=== PATIENT | male | born 1960 | race Hispanic/Latino ===

== ENCOUNTER 2017-04-05 07:45 | Day surgery (SDC) | payer MEDICAID ==
[2017-03-25 13:10] VITALS: BMI 30.8
[2017-04-05 08:18] LABS: BASO # 0.04 K/mm3 (0.0-2.0); BASO % 0.4 % (0.0-3.0); EOS # 0.2 (0.0-0.7); EOS % 1.4 % (1.5-5.0); GRAN # 7.81 (1.4-6.5); GRAN % 69.7 % (50.0-68.0); HEMOGLOBIN 13.8 gm/dL (14.0-18.0); LYMPH # 2.4 (1.2-3.4); LYMPH % 21.3 % (22.0-35.0); MEAN CELL VOLUME 84.6 fL (80.0-105.0); MEAN CORPUSCULAR HEMOGLOBIN 29.1 pg (25.0-35.0); MEAN CORPUSCULAR HGB CONC 34.4 g/dl (31.0-37.0); MEAN PLATELET VOLUME 8.8 fl (7.0-11.0); MONO # 0.8 (0.1-0.6); MONO % 7.2 % (1.0-6.0); PLATELET COUNT 225 10^3/uL (120.0-450.0); RBC 4.74 10^6/uL (3.5-6.1); RED CELL DISTRIBUTION WIDTH 14.9 % (11.5-14.5); WHITE BLOOD COUNT 11.2 10^3/ul (4.5-11.0)
[2017-04-05 08:24] LABS: BLOOD UREA NITROGEN 23 mg/dL (7-21); CALCIUM 9.2 mg/dL (8.4-10.5); GFR AFRICAN-AMERICAN > 60; GFR NON-AFRICAN AMERICAN > 60; HDL CHOLESTEROL 65 mg/dL (29-60)
[2017-04-05 08:34] LABS: INR 0.97 (0.93-1.08); PARTIAL THROMBOPLASTIN TIME 21.5 Seconds (23.7-30.8); PROTHROMBIN TIME 10.5 Seconds (9.9-11.8)
[2017-04-05 08:35] LABS: LDL CHOLESTEROL 92 mg/dL (0-129)
[2017-04-05] MEDS ORDERED: Lidocaine 2% Inj (20ml) ONE (10:34)
[2017-04-05] MEDS ORDERED: Midazolam 2 MG/2 ML VIAL ONE (11:10)
[2017-04-05] MEDS ORDERED: Iohexol 350 MG/100 ML VIAL ONE (11:24)
[2017-04-05] MEDS ORDERED: Sodium Chloride 0.45% 1,000 ML IV SCH (11:45)
[2017-04-05 12:14] VITALS: TEMP 98.1; O2SAT 96
[2017-04-05 13:58] VITALS: RESP 18
[2017-04-05 14:35] VITALS: BP 109/64; PULSE 72
--- NOTE | 2017-04-06 12:10 | CARD ---
APPROVED REPORT Procedure(s) performed: Left Heart Catheterization Complete Heart Catheterization Left Ventriculogram Selective Right and Left Coronary Angiography HISTORY diagnostic cath, tobacco history() : The patient is a current smoker . INDICATION The indication(s) include : positive stress test, dyspnea. CASE TECHNIQUE The patient was brought electively to the Cardiac Catheterization Laboratory in a fasting state and was prepped and draped in a sterile manner. The right femoral groin was infiltrated with 2% Lidocaine subcutaneous anesthesia. A 5 Fr x 11 cm Leslie sheath was inserted using coronary diagnostic catheters. The left coronary system was accessed and visualized with a Diagnostic catheter. The right coronary system was accessed and visualized with a Diagnostic catheter. The left ventricle was accessed and visualized with a Diagnostic catheter. Left ventricular/Aortic Valve gradient assessed on pullback. Closure device was deployed with a 6 Fr Angio-Seal without any complications. Vessel Analysis The patient's coronary anatomy is right dominant. The left main coronary artery is a medium size vessel with intimal irregularities. The left main bifurcates to the left anterior descending and circumflex. The left anterior descending artery is a medium size vessel . There is a 30% stenosis in the mid segment. The first diagonal branch is a medium size vessel . There is a 50% stenosis in the ostial segment. The circumflex artery is a medium size vessel . There is a 30% stenosis in the proximal segment. The right coronary artery is a medium size vessel . There is a 50% stenosis in the distal segment. The right posterior descending artery is a small size vessel . There is a 50% stenosis in the distal segment. Left Ventricle The left ventricle is normal in size with normal contractility. There was no cardiomyopathy. The left ventricular ejection fraction is estimated to be 60%. Conclusion non critical cad small vessel CAD Normal left ventricular function. Recommendations Smoking Cessation Aggressive Medical Therapy Medical Therapy
== END 2017-04-05 15:00 | disposition home or self-care (01) ==
LOC: CATH 07:45
PROVIDERS: ATTEND Internal Medicine Cardiovascular Disease
DX: I25.10 Atherosclerotic heart disease of native coronary artery without angina pectoris (principal); I10 Essential (primary) hypertension; F17.200 Nicotine dependence, unspecified, uncomplicated
CPT/HCPCS: 36415; 80048; 80061; 85025; 85610; 85730; 86850; 86900; 93458; 93567; 99152; C1713; C1760; C1769 ×2; C1887 ×2; J1644; J2250; J3010; J7030; J7040; Q9967 ×2